=== PATIENT | male | born 1995 | race Hispanic/Latino ===

== ENCOUNTER 2023-05-16 17:00 | Emergency (ER) | payer SELFPAY ==
[2023-05-16 17:09] VITALS: BP 146/99
--- NOTE | 2023-05-16 17:50 | ED.MUSCINJ ---
HPI-Injury
General
Chief Complaint: Musculo-Skeletal Complaint
Source: patient
Exam Limitations: none
Time Seen by Provider: 05/16/23 17:28
Nursing documentation reviewed up to this point in time: agreed with
Travel History
Have you had any contact with someone who has COVID-19?: No
Do you have any symptoms of coronavirus? Fever > 100 degrees, chills, cough, shortness of breath, sore throat, loss of taste or smell, muscle aches, or headache?: No
History of Present Illness-Injury
Is this injury a work related problem?: No
Is pt an associate of [facility]?: No
Initial Injury comments:
Patient states he rolled ankle this weekend. Complains of pain to right lat ankle. Pain continues to worsen. Brought to ED by spouse for eval.
Past History
Past History
ED Past Medical History: None
ED Past Surgical History: None
Review of Systems
Review of Systems
Allergies reviewed?: Yes
All Other Systems: ROS reviewed and negative except as documented in HPI and ROS
Constitutional: Reports no symptoms
Musculoskeletal: Reports joint pain (pain to right lat ankle)
Skin: Reports no symptoms
Neurological: Reports no symptoms
Psychiatric: Reports no symptoms
Musculoskeletal Injury Exam
Musculoskeletal Injury Exam
Right Lateral Ankle:
Pain with Movement?: Moderate
Tender to palpation?: Moderate
Soft tissue swelling?: Mild
External deformity and angulation?: None
Joint effusion?: None
Contusion?: None
Hematoma-local bleeding into tissue?: None
Strain- Sprain- Tear (Connective tissue injury)?: Moderate
Crepitus with movement?: No
Joint instability?: No
Malalignment/deformity?: No
Range of motion: Limited
Distal skin color and temperature: normal-warm & good color
Capillary Refill: normal
Normal distal neurovascular exam?: No
Peripheral Pulses: posterior tibial (right): 3+ and dorsalis pedis (right): 3+
Phy Exam
General Physical Exam
General Presentation: well appearing
General age: appears stated age
General Skin: warm
General Habitus: normal
General Mental: alert
Musculoskeletal Exam
Musculoskeletal Exam: neuro vasc intact and other (Achilles intact. No tenderness base of 5th, proximal tib fib)
Skin Exam
Skin Exam: normal color, warm/dry and no rash
Psychiatric Exam
Psychiatric Exam: normal mood/affect
Injury Course
Orders/Labs/Results
Orders:
Orders
05/16/23 17:11
CR Ankle - Right Min 3 Views * Urgent
Comment:
Reason For Exam: injury
CR Leg Tibia/fibula Right 2 Vw Urgent
Comment:
Reason For Exam: injury
05/16/23 17:48
Ortho Boot Right- Treatment ONCE
Short or tall?: Tall
*Radiology
Radiology exam reviewed: radiology read reviewed
*Pulse Oximetry
Patient hypoxic: no
*Critical Care Note
Total Time (30-74mins, 75-104mins- exclusive of procedures): Not Applicable
ED Attending Note
-
Portions of this chart may have been created with voice recognition software.� Occasional wrong word or��sound alike� substitutions may have occurred due to the inherent limitations of voice recognition software.
Discharge Plan
Departure
Patient Disposition: Home (Routine Discharge)
Date of Disposition: 05/16/23
Time of Disposition: 17:48
Patient with high blood pressure during this ER visit?: No
Condition: Good
Covid-19: Not Applicable
Discharge Problem:
Ankle sprain
Instructions: Ankle Sprain (DC), How to Use Crutches, Ibuprofen, Using Cold for Pain
Referrals:
NONE,* [Family Provider] -
Kranthi Holloway MD [Active] - Follow up in 1 week (Follow up if your symptoms do not improve over the next 5-7 days.)
Stand Alone Forms: Return to Work
Interventions
Interventions:
*Risk Screen - Suicide Last Done: 05/16/23 17:09
*General Assessment Last Done: 05/16/23 17:09
ED-Musculoskeletal Assessment Last Done: 05/16/23 17:28
[2023-05-16 18:08] VITALS: BP 129/91
[2023-05-16 18:10] VITALS: BP 129/91
== END 2023-05-16 18:10 | disposition home or self-care (01) ==
LOC: EMR 17:00
PROVIDERS: EMERGENCY PHYSICIAN Emergency Medicine
DX: S93.401A Sprain of unspecified ligament of right ankle, initial encounter (principal); X50.1XXA Overexertion from prolonged static or awkward postures, initial encounter
CPT/HCPCS: 99283; 73590; 73610